=== PATIENT | female | born 1940 | race Caucasian/White ===

== ENCOUNTER 2018-06-01 07:13 | Day surgery (SDC) | payer MEDICARE ==
[~2018-06-01] VITALS: Ht 177.8 cm; Wt 68.4 kg
[~2018-06-01 07:13] MED LIST: ASPI-555 PO; ATOR10 PO; AUD IH; BENA40TA9 PO; CALC-1085 PO; CEFU500T67 PO; CLON0.1T PO; FURO-152 PO; IBAN150T8 PO; INDA1.255 PO; LORA0.5T2 PO; MELA3TAB10 PO; POTA10TA14 PO; SITA25TA5 PO; SODIUM CHLORIDE 0.9% 1000ML 1,000 ML IV ONE; VERA360C2 PO
[2018-06-01 07:29] VITALS: BP 101/79
[2018-06-01] MEDS ORDERED: PROPOFOL 10 MG/ML 20ML VIAL IV ONE ×2 (08:00)
[2018-06-01] MEDS ORDERED: ALBUHFA IH (08:18)
[2018-06-01] MEDS ORDERED: LATA7.5D OU (08:18)
[2018-06-01] MEDS ORDERED: INDA1.255 PO (08:18)
[2018-06-01] MEDS ORDERED: IBAN150T8 PO (08:18)
[2018-06-01] MEDS ORDERED: MAGN100T5 PO (08:18)
[2018-06-01] MEDS ORDERED: BUDE10.2 IH (08:20)
[2018-06-01 08:24] VITALS: BP 119/55
[2018-06-01 08:32] VITALS: BP 116/54
[2018-06-01 08:37] VITALS: BP 115/53
[2018-06-01 08:42] VITALS: BP 124/59
== END 2018-06-01 08:55 | disposition home or self-care (01) ==
LOC: DAH 07:13
PROVIDERS: ATTEND Internal Medicine Gastroenterology
DX: D12.3 Benign neoplasm of transverse colon (principal); D12.4 Benign neoplasm of descending colon; K63.5 Polyp of colon; K57.30 Diverticulosis of large intestine without perforation or abscess without bleeding; E11.9 Type 2 diabetes mellitus without complications; E78.5 Hyperlipidemia, unspecified; J45.909 Unspecified asthma, uncomplicated; G47.00 Insomnia, unspecified; M19.90 Unspecified osteoarthritis, unspecified site; I50.20 Unspecified systolic (congestive) heart failure; I50.9 Heart failure, unspecified; D64.9 Anemia, unspecified; I11.0 Hypertensive heart disease with heart failure; Z79.899 Other long term (current) drug therapy; Z79.82 Long term (current) use of aspirin; Z90.49 Acquired absence of other specified parts of digestive tract; Z98.51 Tubal ligation status; Z98.890 Other specified postprocedural states; Z98.49 Cataract extraction status, unspecified eye; E66.9 Obesity, unspecified; Z68.29 Body mass index [BMI] 29.0-29.9, adult
CPT/HCPCS: 45380; 45385; 82948 ×2; 88305; 93005; A4606; J2704 ×2; J7030